=== PATIENT | male | born 1995 | race Caucasian/White ===

== ENCOUNTER 2018-03-29 17:17 | Emergency (ER) | payer OTHER ==
[2018-03-29] MEDS: DEXAMETHASONE 10 MG/ML 1 ML INJ IM (20:17)
[2018-03-29] MEDS: IPRATROPIUM (NEB) 0.5 MG/2.5 ML AMP HHN (20:22)
[2018-03-29] MEDS: ALBUTEROL 0.083% (NEB) 2.5 MG/3 ML AMP HHN (20:22)
== END 2018-03-29 20:55 | disposition home or self-care (01) ==
LOC: FTE 17:17
DX: J45.901 Unspecified asthma with (acute) exacerbation (principal); Z87.891 Personal history of nicotine dependence
CPT/HCPCS: 71045; 94664; 96372; 99284-25

== ENCOUNTER 2018-05-01 11:13 | Emergency (ER) | payer OTHER ==
[2018-05-01] MEDS: predniSONE 20 MG TAB PO (12:06)
[2018-05-01] MEDS: IPRATROPIUM (NEB) 0.5 MG/2.5 ML AMP NEB (12:12)
[2018-05-01] MEDS: ALBUTEROL 0.083% (NEB) 2.5 MG/3 ML AMP NEB (12:13)
== END 2018-05-01 12:55 | disposition home or self-care (01) ==
LOC: FTE 11:13
DX: J45.901 Unspecified asthma with (acute) exacerbation (principal); Z87.891 Personal history of nicotine dependence
CPT/HCPCS: 94664; 99284-25

== ENCOUNTER 2018-12-08 02:50 | Emergency (ER) | payer OTHER ==
[2018-12-08] MEDS: predniSONE 20 MG TAB PO (03:15)
== END 2018-12-08 03:40 | disposition home or self-care (01) ==
LOC: FTE 02:50
DX: J45.901 Unspecified asthma with (acute) exacerbation (principal); F17.210 Nicotine dependence, cigarettes, uncomplicated
CPT/HCPCS: 99283; J7512

== ENCOUNTER 2019-01-10 01:37 | Emergency (ER) | payer SELFPAY, OTHER | END 2019-01-10 02:35 | disposition left against medical advice (07) | LOC: E/R 01:37 | DX: Z53.21 Procedure and treatment not carried out due to patient leaving prior to being seen by health care provider (principal) | CPT/HCPCS: 93005 ==